=== PATIENT | male | born 1935 | race Caucasian/White ===

== ENCOUNTER 2016-06-04 21:00 | Inpatient (IN) | payer OTHER ==
--- NOTE | ~2016-06-04 | DS ---
Discharge Summary [address] [place]. [address] NAME: MAIDA YEAGER : 34 STATUS : DIS IN PAT#: [id number] AGE: 81 ADM/REG DATE : 06/05/16 MR#: [id number] REPORT SERV DATE: 06/23/16 DICTATED BY: ABIGAIL LONGORIA JR. DATE: 06/23/16 REPORT STATUS : Draft TRANSCRIBED BY: MODRafat DATE: 06/23/16 Data Collection from hospitalization DISCHARGE DIAGNOSES: 1. T3 node positive. 2. Hypertension. 3. Osteoarthritis. 4. Anemia. 5. 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 6. Gastroesophageal reflux disease. 7. Chronic obstructive pulmonary disease. 8. Asthma. CONSULTATIONS: 1. Alphonso Dos Santos MD. 2. Mode Oliva M.D. PROCEDURES PERFORMED: 1. EGD with multiple biopsies of distal gastric mass on 06/06/2016. 2. Distal gastrectomy with Radu-en-Y gastrojejunostomy, retroperitoneal lymph node dissection (right gastric hepatoduodenal ligament), periduodenal lymph nodes, cholecystectomy and feeding jejunostomy placement on 06/09/2016. 3. CT scan of the abdomen and pelvis with contrast on 06/04/2016. PATHOLOGY: Antral mass biopsy - invasive adenocarcinoma, moderately differentiated, HER- 2/sarah. IHC - negative for over expression (score 0). Immunohistochemistry for H. pylori negative. Distal stomach, distal gastrectomy - invasive gastric adenocarcinoma - intestinal type. Tumor site - antrum site - maximal tumor dimension - 8.7 cm. Histologic grade - moderately differentiated. Local extent T3 - tumor invades through the muscularis propria to focally involved the subserosal connective tissue. Status of margins - negative. Distal margin is grossly 2 cm away. Proximal margin is grossly 2.5 cm away. Lymph nodes - 7/20 perigastric nodes involved (7/20). Treatment effect - no prior treatment. Lymphs - vascular invasion - not identified. Other findings - chronic active gastritis in association with the ulcerated tumor. Pathologic stage IIIB (pT3, Pn3a). Soft tissues, subpyloric excision - no tumor seen. Soft tissue, hepatoduodenal ligament excision - no tumor seen. Lymph nodes, right gastric dissection - 0/4 nodes involved by tumor (0/4). Gallbladder cholecystectomy - chronic cholecystitis with cholesterolosis. Small bowel "additional" excision - no significant histopathologic change. MEDICATIONS: Aspirin 81 mg at bedtime, Neurontin 300 mg twice a day, Reglan 5 mg four times a day, multivitamins one tablet daily, Zofran 4 mg every four to six hours as needed, Protonix 40 mg daily, and Carafate 1 g daily. CONDITION AT DISCHARGE: Stable. DISPOSITION: The patient was discharged home to be followed by home health care on a soft GI diet with activities as instructed. He would follow up with me on 06/21/2016. Discharge Summary [address] [facility] [place]. [address] NAME: MAIDA YEAGER : 34 STATUS : DIS IN PAT#: [id number] AGE: 81 ADM/REG DATE : 06/05/16 MR#: [id number] REPORT SERV DATE: 06/23/16 DICTATED BY: ABIGAIL LONGORIA JR. DATE: 06/23/16 REPORT STATUS : Draft TRANSCRIBED BY: TABATHA DATE: 06/23/16 HOSPITAL COURSE: This is an 81-year-old man who has a history of hypertension and presented with nausea and fatigue. He reports that he had mild episodes of nausea since the week prior to this admission, but that had started becoming more consistent and bothering him since Monday prior to admission. He also experienced progressive fatigue. He had some acid reflux, which he has never had before. He presented to the emergency room and was found to be afebrile. He was hemodynamically stable. He was seen by Dr. Alphonso Dos Santos. Initial lab evaluation was benign for electrolytes, liver function tests, and lipase. White count was 17.2 and hemoglobin was 9.6. A CT scan of the abdomen and pelvis with contrast showed [id number] gastric distention with partial gastric outlet obstruction. He was admitted to the hospital at this time for further evaluation and treatment. Upon admission, urinalysis was negative. Strep test was negative. He was going to be placed on telemetry monitoring. He was held n.p.o. IV fluid resuscitation was started. Iron studies were going to be checked along with reticulocyte, TSH, B12, and folate. Procalcitonin level was going to be checked. Hemoglobin A1c was going to be checked as he was hyperglycemic. He was placed on sliding scale insulin. Standard DVT prophylaxis was begun. He was seen in consultation by Dr. Mode Oliva regarding suspecting gastric outlet obstruction. He recommended large bore NG tube for gastric decompression as well as Protonix infusion. H. pylori antibody was going to be checked. It was felt that he would need to undergo an EGD. On 06/06/2016, he was taken to the endoscopic suite where he underwent EGD with multiple biopsies of distal gastric mass. The patient tolerated this well, and there were no complications. Postoperatively, he was seen by Dr. Abigail Longoria. He discussed this in detail with Dr. Mode Oliva. It was felt that the patient would need some sort of palliative operative procedure even if he was not unresectable. It was felt that the next step would be surgery pending the pathology to make sure this is a lymphoma or another type of lesion that may be more responsive to systemic therapy. The patient was transfused two units of packed red blood cells as his hemoglobin level was 7. He remained on NG suction. The patient had been found to have a large distal neoplastic lesion in the stomach, most consistent with adenocarcinoma rather than lymphoma or other etiology. He had partial pyloric obstruction due to this. 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 IV fluids and NG suction continued. Zofran was being given as needed. Sliding scale insulin continued. On 06/07/2016, the NG tube was clamped. His abdomen was soft and nontender. He had positive bowel sounds. H. pylori AB was positive. TPN therapy was going to be performed. A PICC line was inserted. The next day, he had no new complaints. Hemoglobin level remained stable. He was up sitting in a chair. He was in good spirits. Plans were being made to proceed with surgical intervention. Biopsies had revealed adenocarcinoma. On 06/09/2016, the patient was taken to the operating room where he underwent the above- mentioned procedure by Dr. Abigail Longoria. He tolerated this well, and there were no complications. On postop day #1, urine output was clear. His lungs looked okay. The Fountain catheter remained in place. Sliding scale insulin was increased to level 2. On postop day #2, the NG tube and Fountain catheter were removed. Urine output was okay. TPN therapy continued. Tube feedings were going to be slowly started. Clear liquids were started. He was transferred to the floor. On 06/13/2016, his abdomen was soft. We advanced his diet. He was afebrile. TPN was being weaned. He was evaluated by Physical Therapy. The next day, discharge planning was performed. He complained of some heartburn and reflux. Discharge Summary [address] [address] NAME: MAIDA YEAGER : 34 STATUS : DIS IN PAT#: [id number] AGE: 81 ADM/REG DATE : 06/05/16 MR#: [id number] REPORT SERV DATE: 06/23/16 DICTATED BY: ABIGAIL LONGORIA JR. DATE: 06/23/16 REPORT STATUS : Draft TRANSCRIBED BY: MODL DATE: 06/23/16 Pathology results were reviewed. He had T3 node positive. On 06/15/2016, tube feedings were stopped. Discharge instructions were given. Due to his improved and stable condition, he was discharged home to be followed by home health care with the above-stated instructions. Information collected by: Cristy Hernandez I submit the above information as my discharge summary. BAUTISTA/TABATHA Abigail Longoria Jr., M.D. / [id number] CC: Michelle Joe Jr., TYE Alan Shikoh, M.D.
--- NOTE | ~2016-06-04 | CN ---
Consultation Report [id number] [facility] [place]. [address] NAME: MAIDA YEAGER : 34 STATUS : ADM IN [facility]#: [id number] AGE: 81 ADM/REG DATE : 06/05/16 MR#: [id number] REPORT SERV DATE: 06/06/16 DICTATED BY: ABIGAIL LONGORIA JR. DATE: 06/06/16 REPORT STATUS : Draft TRANSCRIBED BY: MODL DATE: 06/06/16 CONSULT DATE OF CONSULTATION: 06/06/2016 This is a consultation request Dr. Oliva for gastric outlet obstruction. HISTORY OF PRESENT ILLNESS: This is an 81-year-old male who presented to the emergency department with complaints of nausea, fatigue, and emesis. These symptom have been going on for approximately 1 week. He had apparently had some mild episodes of abdominal discomfort and nausea but this became much worse 5 to 6 days prior to admission. It was associated with fatigue, increased acid reflux, distention in the abdomen, and again the vomiting. He came to the emergency room where he did have a CT the abdomen and pelvis which showed moderate to severe gastric distention consistent with the gastric outlet obstruction. There is no definite mass identified. The patient denies fever or chills. He says his bowels have worked satisfactorily. He denies any GI bleeding. He denies any history of ulcer disease or any other significant GI history. He is admitted. NG tube was placed. IV fluids were administered and he is seeing Dr. Oliva of [facility] who is planning an EGD later today. PAST MEDICAL HISTORY: Remarkable for history of hypertension, osteoarthritis. SURGICAL HISTORY: Remarkable for orthopedic surgery of the hand and the spine. MEDICATIONS: Are listed and reviewed. FAMILY HISTORY: Remarkable for coronary artery disease and rheumatoid arthritis. SOCIAL HISTORY: He does not smoke or drink. He is . Lives with his . REVIEW OF SYSTEMS: GENERAL: He has no fever or chills. No significant weight loss. Fatigue is present. HEENT: Negative. PULMONARY: Negative. CARDIAC: Negative. GI: As above. : No symptoms. MUSCULOSKELETAL: Negative. HEMATOLOGIC: Negative. IMMUNOLOGIC: Negative. PSYCHIATRIC: Negative. PHYSICAL EXAMINATION: GENERAL: Exam shows an elderly male, who is in no acute distress. VITAL SIGNS: Reviewed. Consultation Report [id number] [facility] [place]. [address] NAME: MAIDA YEAGER : 34 STATUS : ADM IN PAT#: [id number] AGE: 81 ADM/REG DATE : 06/05/16 MR#: [id number] REPORT SERV DATE: 06/06/16 DICTATED BY: ABIGAIL LONGORIA JR. DATE: 06/06/16 REPORT STATUS : Draft TRANSCRIBED BY: TABATHA DATE: 06/06/16 HEENT: The head and neck exam shows the pupils equal, round, and reactive. He has no icteric changes. Mucous membranes are not dry. There is an NG-tube in place. NECK: Supple. There is no mass or thyromegaly. LUNGS: Clear bilaterally. CARDIOVASCULAR: Normal S1 and S2 without murmur. ABDOMEN: Soft, nontender. There is no mass or hepatosplenomegaly. EXTREMITIES: Show no clubbing, cyanosis, or edema. NEUROLOGIC: alert and oriented. He has no focal findings. Appropriate affect. DATA: CT scans are reviewed. Discussed with of Radiology. IMPRESSION: Gastric outlet obstruction of uncertain etiology. Recommend continued NG suction and IV fluids. We will await EGD findings to decide if surgical management is indicated. This was discussed with the patient and family who understand and agree. LACY/TABATHA Abigail Longoria Jr., M.D. / [id number] CC: MD YG Hardwick
--- NOTE | ~2016-06-04 | HP ---
History And Physical [address] [place] [place]. [address] NAME: MAIDA YEAGER : 34 STATUS : ADM IN [facility]#: [id number] AGE: 81 ADM/REG DATE : 06/05/16 MR#: [id number] REPORT SERV DATE: 06/06/16 DICTATED BY: ALPHONSO DOS SANTOS DATE: 06/05/16 REPORT STATUS : Draft TRANSCRIBED BY: MODL DATE: 06/05/16 DATE OF ADMISSION: 06/05/2016 CHIEF COMPLAINT: Nausea and fatigue. HISTORY OF PRESENT ILLNESS: This is an 82-year-old gentleman with history of hypertension, presenting with nausea and fatigue. The patient reports that he had mild episodes of nausea since last week, but it really started becoming more consistent and bothering him since about Monday. The patient also experienced progressive fatigue. The patient also had some acid reflux, which he has never had before. The patient has now decided to come to the ER for further evaluation and care. In the ER, the patient was found to be afebrile and hemodynamically stable. Initial lab evaluation was benign for electrolytes, LFTs, and lipase. The patient's CBC revealed a white blood cell count of 17.2 and hemoglobin of 9.6. CT of the abdomen and pelvis with oral contrast showed a moderate to severe gastric distention with partial gastric outlet obstruction. Internal Medicine consultation was requested for admission of the patient for further evaluation and care. REVIEW OF SYSTEMS: The patient denies any fevers or chills. Also, 14-point review of systems reviewed and negative other than mentioned above. MEDICATIONS: List is still pending at this time. PAST MEDICAL HISTORY: 1. Hypertension. 2. Osteoarthritis. PAST SURGICAL HISTORY: 1. Orthopedic Hand surgery, right hand. 2. L-spine surgery. FAMILY HISTORY: 1. Coronary artery disease. 2. Rheumatoid arthritis. 3. CVA. SOCIAL HISTORY: The patient does not smoke, drink alcohol, or use any illicit drugs. The patient lives at home with his . The patient's 2 daughters are here at bedside in the ER, along with the . PHYSICAL EXAMINATION: VITAL SIGNS: Temperature 98.6, blood pressure 114/57, pulse 105, respiratory rate is 18, saturating 94% on room air. CONSTITUTIONAL: On physical exam, the patient is alert and oriented x3 with no focal History And Physical [address] [place]. [address] NAME: MAIDA YEAGER : 34 STATUS : ADM IN [facility]#: [id number] AGE: 81 ADM/REG DATE : 06/05/16 MR#: [id number] REPORT SERV DATE: 06/06/16 DICTATED BY: ALPHONSO DOS SANTOS DATE: 06/05/16 REPORT STATUS : Draft TRANSCRIBED BY: MODL DATE: 06/05/16 neurologic deficits. GENERAL: The patient is awake, does not appear to be in acute distress, and he is cooperative. NECK: No JVD. No lymphadenopathy. Normal thyroid. CHEST: No midline sternotomy scar and no tenderness to palpation. LUNGS: Clear to auscultation bilaterally with normal respiratory effort on room air. CARDIOVASCULAR: Regular rate and rhythm with no murmurs, rubs, or gallops, and PMI is nondisplaced. ABDOMEN: Soft, nontender, with active bowel sounds and no organomegaly. EXTREMITIES: No edema. Normal distal pulses. No calf tenderness. SKIN: Clean, dry, warm, and intact. LABORATORY DATA: Sodium is 144, potassium 3.8, chloride 108, BUN 15, creatinine 1.09, glucose 184, and calcium 9.9. LFTs and lipase are within normal limits. White blood cell count is 17.2, hemoglobin 9.6, platelets 290. Strep was negative. Chest x-ray was within normal limits. Urinalysis was negative. CT of the abdomen and pelvis with p.o. contrast revealed a moderate to severe gastric distention with gastric outlet obstruction. ASSESSMENT: This is an 82-year-old gentleman with history of hypertension and osteoarthritis presenting with nausea and gastric outlet obstruction. 1. Persistent nausea due to gastric outlet obstruction. 2. Leukocytosis without any foci of infection. 3. Anemia. 4. Hyperglycemia without history of diabetes. 5. Hypertension. 6. Osteoarthritis. PLAN: The plan is to admit the patient under telemetry monitoring. The patient will be made n.p.o. and he will be given IV fluid resuscitation. The patient will also be given supportive care with antiemetics. Most importantly, I will get GI consultation requested. For the anemia, I will check iron studies along with reticulocyte and TSH, B12, folate. For the leukocytosis, I will follow CBC and check procalcitonin level. For hyperglycemia, I will check hemoglobin A1c and put him on insulin sliding scale. Otherwise, for the rest of stable past medical conditions, including hypertension, osteoarthritis et al, I will continue home medications. Standard DVT prophylaxis. The patient is full code at this time. CAMERON/TABATHA Alphonso Dos Santos MD / [id number] CC: History And Physical [address] [address] NAME: MAIDA YEAGER : 34 STATUS : ADM IN [facility]#: [id number] AGE: 81 ADM/REG DATE : 06/05/16 MR#: [id number] REPORT SERV DATE: 06/06/16 DICTATED BY: ALPHONSO DOS SANTOS DATE: 06/05/16 REPORT STATUS : Draft TRANSCRIBED BY: TABATHA DATE: 06/05/16 MD Kishoer Hardwick MD
--- NOTE | ~2016-06-04 | OP ---
Record Of Operation [facility] [address] [place]. [address] NAME: MAIDA YEAGER : 34 STATUS : ADM IN PAT#: [id number] AGE: 81 ADM/REG DATE : 06/05/16 MR#: [id number] REPORT SERV DATE: 06/06/16 DICTATED BY: MODE OLIVA DATE: 06/06/16 REPORT STATUS : Draft TRANSCRIBED BY: MODL DATE: 06/06/16 DATE OF PROCEDURE: PROCEDURE: EGD with multiple biopsies of distal gastric mass. INDICATION: Gastric outlet obstruction. MEDICATIONS: General endotracheal anesthesia. RETAIL TRAINING MANAGER: Mode Oliva M.D. COMPLICATIONS: None. HISTORY: See consult note for details. We decided to proceed with endoscopy after he had nasogastric suction all night. The potential risks and limitations were reviewed including bleeding, medication reaction, or perforation and he elected to proceed. FINDINGS: The endoscope was passed beside the nasogastric tube into the stomach. Due to the fact the tube coiled, we had to remove it and it was replaced after the procedure. There was a large amount of solid food debris in the body of the stomach and the proximal stomach. This obscured good views of the GE junction on retroflexion. The esophagus and GE junction, however, appeared normal on antegrade views. The most significant lesion was a circumferential mass involving pretty much the entire antrum with extensive ulceration and necrosis. Although there was stenosis of the pylorus, it was patent and I was able to traverse it with the endoscope. Numerous biopsies were taken. The bulb and descending duodenum were normal. IMPRESSION: 1. Large distal neoplastic lesion in the stomach most consistent with adenocarcinoma rather than lymphoma or other etiology and now status post biopsies. 2. Partial pyloric obstruction due to above. 3. Anemia due to chronic bleeding from above. RECOMMENDATIONS: I discussed in detail with Dr. Patterson. We both feel that he will need some sort of palliative operative procedure even if he was nonresectable, so probably the next step will be surgery pending the pathology to make sure this is a lymphoma or another type lesion that may be more responsive to systemic therapy. We will go ahead and transfuse 2 units of packed red blood cells as his hemoglobin is down 7 today. We will keep him to NG suction. /TABATHA Mode Oliva M.D. Record Of Operation [place] [address] [place]. [address] NAME: MAIDA YEAGER : 34 STATUS : ADM IN PAT#: [id number] AGE: 81 ADM/REG DATE : 06/05/16 MR#: [id number] REPORT SERV DATE: 06/06/16 DICTATED BY: MODE OLIVA DATE: 06/06/16 REPORT STATUS : Draft TRANSCRIBED BY: BEREKETL DATE: 06/06/16 / [id number] CC: MD MORALES Hardwick,Michelle Espinosa Jr., M.D.
--- NOTE | ~2016-06-04 | OP ---
Record Of Operation [facility] [address] [place]. [address] NAME: MAIDA YEAGER : 33 STATUS : ADM IN PAT#: [id number] AGE: 81 ADM/REG DATE : 06/05/16 MR#: [id number] REPORT SERV DATE: 06/09/16 DICTATED BY: ABIGAIL LONGORIA JR. DATE: 06/09/16 REPORT STATUS : Draft TRANSCRIBED BY: MODL DATE: 06/09/16 DATE OF PROCEDURE: 06/09/2016 SURGEON: Abigail Longoria M.D. FURNITURE ASSOCIATE: Flora Woo. PROCEDURE: Distal gastrectomy with Radu-en-Y gastrojejunostomy, retroperitoneal lymph node dissection (right gastric hepatoduodenal ligament), periduodenal lymph nodes, cholecystectomy, and feeding jejunostomy placement. 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 ANESTHESIA: General. INDICATIONS: This patient had presented with gastric outlet obstruction. Endoscopically, he was found to have an ulcerated mass and the biopsy showed adenocarcinoma. Imaging did not show any evidence of metastatic disease. Exploration for resection was indicated for palliation obstruction and local regional disease treatment. FINDINGS: On laparoscopic examination of the abdomen, there was no evidence of any peritoneal metastasis or ascites. There is no apparent hepatic metastasis. There was a mass in the antrum. This did involve the distal stomach; proximal stomach and duodenum were grossly free. Gross assessment was somewhat complicated by a malrotation syndrome where his jejunum did exit on the patient's right side and the right colon was located in the midline with adhesions of the right colon to the transverse colon and also adhesions of the small bowel. There was some adherence in the region of the posterior aspect of the tumor but again some of this was complicated by the extensive mesenteric tissue in the area. Nevertheless, all gross tumor was removed and there was a clean dissection of the tumor and perigastric nodes from the anterior surface of the pancreas and the periduodenal region. Nodes were also removed along the hepatojejunal ligament up to the hilum of the liver and also along the right gastric up to the celiac plexus. There is no gross adenopathy or other significant abnormality that was remaining. A Radu-en-Y gastrojejunostomy was created. The proximal limb was somewhat longer in view of the anatomy which also necessitated placing this in a retrocolic fashion. Cholecystectomy was performed because of this apparent inflammation and also a feeding J-tube was placed as an additional support. Pathology examination did show an ulcerated mass within the antrum with frozen section. Examination showed both proximal and distal margins were negative for tumor. DESCRIPTION OF PROCEDURE: With adequate general anesthesia, the patient was placed in the supine position. The abdomen was prepped and draped sterilely. A long midline incision was made. The dissection was carried down sharply through the subcutaneous tissues. The fascia and peritoneum were opened. The peritoneal cavity was entered. The omentum was taken off Record Of Operation [facility] [address] [facility] [place]. [address] NAME: MAIDA YEAGER : 33 STATUS : ADM IN [facility]#: [id number] AGE: 81 ADM/REG DATE : 06/05/16 MR#: [id number] REPORT SERV DATE: 06/09/16 DICTATED BY: ABIGAIL LONGORIA JR. DATE: 06/09/16 REPORT STATUS : Draft TRANSCRIBED BY: TABATHA DATE: 06/09/16 the transverse colon and also portions of the right colon as noted in the findings and then this was carried up to the greater curvature of the stomach where a site was selected for revision of the stomach removing the antrum. The lesser curvature was clamped and divided as well and the stomach was divided after stapling with TA 90. Then the periadrenal tissue was mobilized and the proximal duodenum was cleared and this was divided with a GUSTAVO 75. Additional bleeders controlled with electrocautery with the LigaSure device and ligatures of silk and suture ligature as needed. Excess was removed, could see the distal stomach and perigastric nodes and tissue was noted and omentum. It was submitted to pathology as noted. Additional nodes were excised and submitted with appropriate orientation. The gallbladder was then taken down in a retrograde fashion. Cystic duct and artery were doubly clipped and divided. Bleeding within the bed was controlled with electrocautery. There was no evidence of any bleeding or bile leak at the conclusion of the case. Then the adhesions were taken down to mobilize the small bowel and identify the anatomy. A site was selected for revision of the jejunum and this was accomplished. The distal end was brought up for the anastomosis. The lesser curved side of the stomach was closed off with 2-0 silk sutures and then an end-to-side gastrojejunostomy was created with an inner running 3-0 Vicryl and outer interrupted 3-0 silk sutures. The nasogastric tube was left through the anastomosis into the jejunal limb. Then some 45 cm distal to this, anterior interosseous was created with a GUSTAVO 75 and the open end was closed with interrupted suture of 3-0 silk. Then, the staple portion was also reinforced. Distal to this, a feeding J-tube was placed utilizing 16- Tunisian T-Tube placed securing it with a pursestring suture of silk. It was brought through the right abdominal wall where the tube was secured at the exit site with 2-0 nylon suture and the jejunum was sewed to overlying perineum with suture of 3-0 silk. The abdomen was then irrigated with saline. Hemostasis was assured also with Evicel fibrin spray. A 19 Micheal drain was left in the subhepatic space with its tip just superior to the duodenal stump and this secured with nylon suture. Then, the wound was closed by approximating the fascia with running 0 PDS suture and the subcutaneous tissues with 3-0 Vicryl and skin with dermal Monocryl. A AGUSTÍN negative pressure dressing was placed. The patient left the operating room in satisfactory condition. The estimated blood loss was 150 mL. LACY/TABATHA Abigail Longoria Jr., M.D. / [id number] CC: Mike Hunter II, MD
--- NOTE | ~2016-06-04 | CN ---
Consultation Report [facility] [address] [place]. [address] NAME: MAIDA YEAGER : 33 STATUS : ADM IN PAT#: [id number] AGE: 81 ADM/REG DATE : 06/05/16 MR#: [id number] REPORT SERV DATE: 06/05/16 DICTATED BY: MODE OLIVA DATE: 06/05/16 REPORT STATUS : Draft TRANSCRIBED BY: MODL DATE: 06/05/16 CONSULTATION DATE OF CONSULTATION: 06/05/2016 HISTORY OF PRESENT ILLNESS: This is an 81-year-old man who I am asked to evaluate for suspected gastric outlet obstruction. This gentleman has been in excellent health despite his advanced age. He is a vague historian and really reports only about a week of symptoms, which he described as mild dyspepsia and then pressure in his upper abdomen when he eats. He also had some nausea, but he has not vomited. He describes some difficulty swallowing but really appears more, but he felt a pressure sensation during the meal. He has not been eating a lot and he thinks he may have lost a few pounds. He has taken some Tums, but he denies taking any nonsteroidal medications. He has had no prior history of peptic ulcer disease. He has never had an upper endoscopy, but he did have a screening colonoscopy by Dr. Alamo over a decade ago. CT scan on admission showed gastric dilation with retained food and possible thickening of the distal stomach. PAST MEDICAL HISTORY: Remarkable only for degenerative joint disease and spinal stenosis, for which he had back surgery last year. PAST SURGICAL HISTORY: 1. Status post cataract extraction and intraocular lens implant. 2. Status post right hand surgery status post back surgery by Dr. Cadena in 11/2014. MEDICATIONS: (on admission) aspirin 81 mg a day, Neurontin, and multivitamin. ALLERGIES: NO KNOWN DRUG ALLERGIES. FAMILY HISTORY: He was one of the 11 children. His oldest brother had extensive gastric surgery for peptic ulcer disease. SOCIAL HISTORY: He is a retired software engineer developer. His grandson was a classmate my second son. His daughter has been a patient of my practice. REVIEW OF SYSTEMS: Otherwise unremarkable for constitutional, endocrine, neurologic, psychiatric, ocular, ENT, pulmonary, cardiovascular, GI, , or rheumatologic symptoms except for as noted above. PHYSICAL EXAMINATION: GENERAL: He is a healthy elderly man, lying comfortably in bed. VITAL SIGNS: Afebrile. SKIN: Warm and dry. Consultation Report [address] [place]. [address] NAME: MAIDA YEAGER : 33 STATUS : ADM IN [facility]#: [id number] AGE: 81 ADM/REG DATE : 06/05/16 MR#: [id number] REPORT SERV DATE: 06/05/16 DICTATED BY: MODE OLIVA DATE: 06/05/16 REPORT STATUS : Draft TRANSCRIBED BY: TABATHA DATE: 06/05/16 LUNGS: Clear. ABDOMEN: Soft and nontender. There is no mass or organomegaly. EXTREMITIES: No edema. LABORATORY DATA: Chest x-ray is negative. Albumin, liver enzymes, lipase are normal. CT scan shows a dilated stomach with retention and some food debris, as well as some possible thickening of the distal antrum. Procalcitonin is normal. Potassium 3.9, BUN 16, creatinine 0.90, iron 27, TIBC 369, ferritin 8. TSH normal. B12 elevated at 1713. BNP normal. White count 11.7, hemoglobin 8.1, MCV low at 77.9. IMPRESSION: 1. Gastric outlet obstruction. 2. Iron deficiency anemia. RECOMMENDATIONS: 1. Large-bore NG tube for gastric decompression. 2. PPI infusion with Protonix 8 mg an hour. 3. Check H pylori antibody. 4. Elective surgical consultation. 5. We will plan EGD tomorrow. MARIA A/TABATHA Mode Oliva M.D. / [id number] CC: MD MORALES Hardwick TYE
[2016-06-04 20:08] LABS: BASOPHILS 0.3 %; BASOPHILS ABSOLUTE 0.05 10/3/uL (0.0-0.16); EOSINOPHILS 0.5 %; EOSINOPHILS ABSOLUTE 0.09 10/3/uL (0.0-0.53); ER CBC TAT 0 Hrs 05 Mins; IMMATURE GRANULOCYTES 0.2 %; IMMATURE GRANULOCYTES ABSOLUTE 0.04 10/3/uL (0.0-0.11); LYMPHOCYTES 7.4 %; LYMPHOCYTES ABSOLUTE 1.27 10/3/uL (0.67-4.30); MEAN PLATELET VOLUME 10.2 fL (9.2-13.0); MONOCYTES ABSOLUTE 0.69 10/3/uL (0.21-1.20); NEUTROPHILS 87.6 %; NEUTROPHILS ABSOLUTE 15.06 10/3/uL (2.02-8.40); RED CELL COUNT 4.31 10/6/uL (4.7-6.1); WHITE BLOOD CELLS 17.2 10/3/uL (4.5-10.5)
[2016-06-04 20:10] LABS: HEMATOCRIT 33.1 % (40.0-51.0); HEMOGLOBIN 9.6 g/dL (13.6-17.8); MANUAL DIFF NO %; MEAN CORPUSCULAR HEMOGLOB 22.3 pg (26.0-34.0); MEAN CORPUSCULAR VOLUME 76.8 fL (80-100); PLATELET COUNT 290 10/3/uL (150-400)
[2016-06-04 20:24] LABS: A/G RATIO 0.9 (0.7-1.9); ALBUMIN 3.5 G/DL (3.5-5.0); ALKALINE PHOSPHATASE 101 U/L (45-117); BUN (BLOOD UREA NITROGEN) 15 MG/DL (6-23); CALCIUM, SERUM 9.9 MG/DL (8.5-10.4); CHLORIDE, SERUM 108 MMOL/L (96-112); CO2 (CARBON DIOXIDE) 27 MMOL/L (24-34); CREATININE 1.09 MG/DL (0.70-1.30); GFR AFRICAN AMERICAN 73 ML/MIN (>=60); GFR NON AFRICAN AMERICAN 63 ML/MIN (>=60); GLOBULIN 3.9 G/DL (2.5-4.1); GLUCOSE, SERUM 184 MG/DL (60-99); POTASSIUM, SERUM 3.8 MMOL/L (3.5-5.3); SGOT(AST) 11 U/L (5-40); SGPT(ALT) 18 U/L (5-65); SODIUM, SERUM 144 MMOL/L (135-148); TOTAL BILIRUBIN 0.5 MG/DL (0-1.2); TOTAL PROTEIN 7.4 G/DL (6.0-8.5)
[~2016-06-04 21:00] MED LIST: ASAB PO; METHOC500B PO; NEUR300 PO; OXYCOD PO
[2016-06-04 22:22] LABS: WBC (NOT ORDERED) (RFLEX) 0 (0-5)
[2016-06-04 22:32] LABS: ASCORBIC ACID (UR NOT ORDER) NEG (NEG); BILIRUBIN, URINE NEGATIVE (NEG); ER URINALYSIS TAT 0 Hrs 14 Mins; KETONE, URINE NEGATIVE (NEG); LEUKOCYTE ESTERASE(NOT OR NEG (NEG); NITRITE (URINE) NEG (NEG)
[2016-06-05] MEDS ORDERED: NEUR300 PO (00:58)
[2016-06-05] MEDS ORDERED: ASAB PO (00:58)
[2016-06-05] MEDS ORDERED: MULTIPLE VIT PO (00:59)
[2016-06-05 01:43] LABS: PROCALCITONIN <0.05 ng/mL (<0.5)
[2016-06-05 06:24] LABS: BASOPHILS 0.4 %; BASOPHILS ABSOLUTE 0.05 10/3/uL (0.0-0.16); EOSINOPHILS 2.9 %; EOSINOPHILS ABSOLUTE 0.34 10/3/uL (0.0-0.53); HEMATOCRIT 27.2 % (40.0-51.0); HEMOGLOBIN 8.1 g/dL (13.6-17.8); IMMATURE GRANULOCYTES 0.2 %; IMMATURE GRANULOCYTES ABSOLUTE 0.02 10/3/uL (0.0-0.11); LYMPHOCYTES 12.3 %; LYMPHOCYTES ABSOLUTE 1.43 10/3/uL (0.67-4.30); MANUAL DIFF NO %; MEAN CORPUS HGB CONC 29.8 g/dL (32.0-36.0); MEAN CORPUSCULAR HEMOGLOB 23.2 pg (26.0-34.0); MEAN CORPUSCULAR VOLUME 77.9 fL (80-100); MEAN PLATELET VOLUME 9.8 fL (9.2-13.0); MONOCYTES 7.9 %; MONOCYTES ABSOLUTE 0.92 10/3/uL (0.21-1.20); NEUTROPHILS 76.3 %; PLATELET COUNT 200 10/3/uL (150-400); RBC DISTRIBUTION WIDTH 19.2 % (12.0-16.0); RED CELL COUNT 3.49 10/6/uL (4.7-6.1); RETICULOCYTE COUNT 1.5 % (0.5-2.5); WHITE BLOOD CELLS 11.7 10/3/uL (4.5-10.5)
[2016-06-05 06:28] LABS: INTERNATIONAL NORMAL RATI 1.3 UNITS (-); PARTIAL THROMBO TIME 29.8 SEC (22.5-37.2); PROTIME (NOT ORD) 15.6 SEC (12.0-14.5)
[2016-06-05 06:41] LABS: B NATRIURETIC PEPTIDE (BNP) 21.4 PG/ML (< 100.0)
[2016-06-05 07:00] LABS: PROCALCITONIN 0.06 ng/mL (<0.5)
[2016-06-05 07:13] LABS: BUN (BLOOD UREA NITROGEN) 16 MG/DL (6-23); CHLORIDE, SERUM 109 MMOL/L (96-112); CO2 (CARBON DIOXIDE) 29 MMOL/L (24-34); FERRITIN 8 NG/ML (26-388); GFR AFRICAN AMERICAN 92 ML/MIN (>=60); GFR NON AFRICAN AMERICAN 79 ML/MIN (>=60); IRON BINDING CAPACITY 369 MCG/DL (250-450); IRON, SERUM 27 MCG/DL (35-150); POTASSIUM, SERUM 3.9 MMOL/L (3.5-5.3); SODIUM, SERUM 145 MMOL/L (135-148)
[2016-06-05 07:15] LABS: CALCIUM, SERUM 8.8 MG/DL (8.5-10.4); FOLATE 30.9 NG/ML (>5.2); GLUCOSE, SERUM 119 MG/DL (60-99)
[2016-06-05 11:01] LABS: GLYCOHEMOGLOBIN (HbA1c) 5.7 % (4.7-6.1)
[2016-06-06 06:35] LABS: BASOPHILS ABSOLUTE 0.07 10/3/uL (0.0-0.16); EOSINOPHILS 7.4 %; EOSINOPHILS ABSOLUTE 0.51 10/3/uL (0.0-0.53); HEMATOCRIT 24.9 % (40.0-51.0); HEMOGLOBIN 7.2 g/dL (13.6-17.8); IMMATURE GRANULOCYTES 0.1 %; IMMATURE GRANULOCYTES ABSOLUTE 0.01 10/3/uL (0.0-0.11); LYMPHOCYTES 19.5 %; LYMPHOCYTES ABSOLUTE 1.35 10/3/uL (0.67-4.30); MEAN CORPUS HGB CONC 28.9 g/dL (32.0-36.0); MEAN CORPUSCULAR HEMOGLOB 22.8 pg (26.0-34.0); MEAN CORPUSCULAR VOLUME 78.8 fL (80-100); MEAN PLATELET VOLUME 10.2 fL (9.2-13.0); MONOCYTES 8.4 %; MONOCYTES ABSOLUTE 0.58 10/3/uL (0.21-1.20); NEUTROPHILS 63.6 %; NEUTROPHILS ABSOLUTE 4.41 10/3/uL (2.02-8.40); PLATELET COUNT 178 10/3/uL (150-400); RBC DISTRIBUTION WIDTH 19.2 % (12.0-16.0); RED CELL COUNT 3.16 10/6/uL (4.7-6.1)
[2016-06-06 06:36] LABS: MANUAL DIFF NO %; WHITE BLOOD CELLS 6.9 10/3/uL (4.5-10.5)
[2016-06-06 06:38] LABS: INTERNATIONAL NORMAL RATI 1.2 UNITS (-); PROTIME (NOT ORD) 15.4 SEC (12.0-14.5)
[2016-06-07 10:42] LABS: BASOPHILS 0.9 %; BASOPHILS ABSOLUTE 0.06 10/3/uL (0.0-0.16); EOSINOPHILS 5.8 %; EOSINOPHILS ABSOLUTE 0.38 10/3/uL (0.0-0.53); IMMATURE GRANULOCYTES 0.2 %; IMMATURE GRANULOCYTES ABSOLUTE 0.01 10/3/uL (0.0-0.11); LYMPHOCYTES 15.2 %; MEAN CORPUSCULAR HEMOGLOB 24.3 pg (26.0-34.0); MEAN CORPUSCULAR VOLUME 77.2 fL (80-100); MEAN PLATELET VOLUME 9.7 fL (9.2-13.0); MONOCYTES 7.9 %; MONOCYTES ABSOLUTE 0.52 10/3/uL (0.21-1.20); PLATELET COUNT 176 10/3/uL (150-400); RBC DISTRIBUTION WIDTH 18.2 % (12.0-16.0); WHITE BLOOD CELLS 6.6 10/3/uL (4.5-10.5)
[2016-06-07 10:44] LABS: HEMATOCRIT 32.1 % (40.0-51.0); HEMOGLOBIN 10.1 g/dL (13.6-17.8); MANUAL DIFF NO %; MEAN CORPUS HGB CONC 31.5 g/dL (32.0-36.0); RED CELL COUNT 4.16 10/6/uL (4.7-6.1)
[2016-06-07 10:58] LABS: A/G RATIO 0.9 (0.7-1.9); ALBUMIN 2.9 G/DL (3.5-5.0); BUN (BLOOD UREA NITROGEN) 14 MG/DL (6-23); CALCIUM, SERUM 8.2 MG/DL (8.5-10.4); CHLORIDE, SERUM 109 MMOL/L (96-112); CREATININE 0.77 MG/DL (0.70-1.30); GFR AFRICAN AMERICAN 98 ML/MIN (>=60); GFR NON AFRICAN AMERICAN 85 ML/MIN (>=60); GLOBULIN 3.3 G/DL (2.5-4.1); PHOSPHORUS, SERUM 2.2 MG/DL (2.5-4.5); POTASSIUM, SERUM 3.7 MMOL/L (3.5-5.3); PREALBUMIN 13.2 MG/DL (17.0-43.0); SGOT(AST) 16 U/L (5-40); SGPT(ALT) 15 U/L (5-65); SODIUM, SERUM 144 MMOL/L (135-148); TOTAL PROTEIN 6.2 G/DL (6.0-8.5); TRIGLYCERIDE 77 MG/DL (< 150)
[2016-06-07 10:59] LABS: ALKALINE PHOSPHATASE 86 U/L (45-117); CO2 (CARBON DIOXIDE) 24 MMOL/L (24-34); GLUCOSE, SERUM 85 MG/DL (60-99); TOTAL BILIRUBIN 1.2 MG/DL (0-1.2)
[2016-06-07 17:22] LABS: PREALBUMIN 12.3 MG/DL (17.0-43.0)
[2016-06-07 17:23] LABS: PHOSPHORUS, SERUM 3.7 MG/DL (2.5-4.5)
[2016-06-08 06:45] LABS: BASOPHILS 0.6 %; BASOPHILS ABSOLUTE 0.04 10/3/uL (0.0-0.16); EOSINOPHILS ABSOLUTE 0.37 10/3/uL (0.0-0.53); HEMATOCRIT 32.2 % (40.0-51.0); HEMOGLOBIN 10.2 g/dL (13.6-17.8); LYMPHOCYTES 20.5 %; LYMPHOCYTES ABSOLUTE 1.27 10/3/uL (0.67-4.30); MEAN CORPUS HGB CONC 31.7 g/dL (32.0-36.0); MEAN CORPUSCULAR HEMOGLOB 24.8 pg (26.0-34.0); MEAN CORPUSCULAR VOLUME 78.3 fL (80-100); MEAN PLATELET VOLUME 10.7 fL (9.2-13.0); MONOCYTES 8.5 %; MONOCYTES ABSOLUTE 0.53 10/3/uL (0.21-1.20); NEUTROPHILS 64.4 %; NEUTROPHILS ABSOLUTE 3.99 10/3/uL (2.02-8.40); PLATELET COUNT 191 10/3/uL (150-400); RBC DISTRIBUTION WIDTH 18.3 % (12.0-16.0); RED CELL COUNT 4.11 10/6/uL (4.7-6.1); WHITE BLOOD CELLS 6.2 10/3/uL (4.5-10.5)
[2016-06-08 06:46] LABS: MANUAL DIFF NO %
[2016-06-08 07:05] LABS: A/G RATIO 0.9 (0.7-1.9); ALBUMIN 2.9 G/DL (3.5-5.0); ALKALINE PHOSPHATASE 82 U/L (45-117); BUN (BLOOD UREA NITROGEN) 16 MG/DL (6-23); CHLORIDE, SERUM 106 MMOL/L (96-112); CO2 (CARBON DIOXIDE) 22 MMOL/L (24-34); CREATININE 0.68 MG/DL (0.70-1.30); FERRITIN 25 NG/ML (26-388); GFR AFRICAN AMERICAN 103 ML/MIN (>=60); GFR NON AFRICAN AMERICAN 89 ML/MIN (>=60); GLOBULIN 3.1 G/DL (2.5-4.1); GLUCOSE, SERUM 90 MG/DL (60-99); IRON BINDING CAPACITY 337 MCG/DL (250-450); IRON, SERUM 30 MCG/DL (35-150); POTASSIUM, SERUM 3.7 MMOL/L (3.5-5.3); SGOT(AST) 17 U/L (5-40); SGPT(ALT) 20 U/L (5-65); SODIUM, SERUM 141 MMOL/L (135-148); TOTAL BILIRUBIN 0.9 MG/DL (0-1.2)
[2016-06-08 07:06] LABS: PHOSPHORUS, SERUM 2.5 MG/DL (2.5-4.5)
[2016-06-09 07:48] LABS: BASOPHILS 0.6 %; BASOPHILS ABSOLUTE 0.04 10/3/uL (0.0-0.16); EOSINOPHILS 4.8 %; EOSINOPHILS ABSOLUTE 0.34 10/3/uL (0.0-0.53); HEMATOCRIT 34.9 % (40.0-51.0); HEMOGLOBIN 10.6 g/dL (13.6-17.8); IMMATURE GRANULOCYTES 0.1 %; IMMATURE GRANULOCYTES ABSOLUTE 0.01 10/3/uL (0.0-0.11); LYMPHOCYTES 16.8 %; MEAN CORPUS HGB CONC 30.4 g/dL (32.0-36.0); MEAN CORPUSCULAR HEMOGLOB 23.7 pg (26.0-34.0); MEAN CORPUSCULAR VOLUME 77.9 fL (80-100); MONOCYTES 8.1 %; MONOCYTES ABSOLUTE 0.58 10/3/uL (0.21-1.20); NEUTROPHILS 69.6 %; NEUTROPHILS ABSOLUTE 4.96 10/3/uL (2.02-8.40); PLATELET COUNT 228 10/3/uL (150-400); RED CELL COUNT 4.48 10/6/uL (4.7-6.1); WHITE BLOOD CELLS 7.1 10/3/uL (4.5-10.5)
[2016-06-09 07:49] LABS: MANUAL DIFF NO %
[2016-06-09 07:53] LABS: A/G RATIO 0.9 (0.7-1.9); ALKALINE PHOSPHATASE 90 U/L (45-117); CALCIUM, SERUM 8.1 MG/DL (8.5-10.4); CHLORIDE, SERUM 108 MMOL/L (96-112); CO2 (CARBON DIOXIDE) 22 MMOL/L (24-34); CREATININE 0.74 MG/DL (0.70-1.30); GFR AFRICAN AMERICAN 100 ML/MIN (>=60); GFR NON AFRICAN AMERICAN 86 ML/MIN (>=60); GLOBULIN 3.4 G/DL (2.5-4.1); PHOSPHORUS, SERUM 2.6 MG/DL (2.5-4.5); POTASSIUM, SERUM 3.9 MMOL/L (3.5-5.3); SGOT(AST) 19 U/L (5-40); SGPT(ALT) 20 U/L (5-65); SODIUM, SERUM 141 MMOL/L (135-148); TOTAL BILIRUBIN 0.7 MG/DL (0-1.2); TOTAL PROTEIN 6.4 G/DL (6.0-8.5)
[2016-06-09 07:54] LABS: BUN (BLOOD UREA NITROGEN) 21 MG/DL (6-23); GLUCOSE, SERUM 124 MG/DL (60-99)
[2016-06-09 20:34] LABS: BASOPHILS 0.1 %; BASOPHILS ABSOLUTE 0.01 10/3/uL (0.0-0.16); EOSINOPHILS 0.2 %; EOSINOPHILS ABSOLUTE 0.02 10/3/uL (0.0-0.53); HEMATOCRIT 33.9 % (40.0-51.0); HEMOGLOBIN 10.4 g/dL (13.6-17.8); IMMATURE GRANULOCYTES 0.2 %; IMMATURE GRANULOCYTES ABSOLUTE 0.02 10/3/uL (0.0-0.11); LYMPHOCYTES 3.9 %; LYMPHOCYTES ABSOLUTE 0.43 10/3/uL (0.67-4.30); MEAN CORPUS HGB CONC 30.7 g/dL (32.0-36.0); MEAN CORPUSCULAR VOLUME 78.1 fL (80-100); MEAN PLATELET VOLUME 10.5 fL (9.2-13.0); MONOCYTES 5.1 %; MONOCYTES ABSOLUTE 0.56 10/3/uL (0.21-1.20); NEUTROPHILS 90.5 %; NEUTROPHILS ABSOLUTE 9.87 10/3/uL (2.02-8.40); PLATELET COUNT 240 10/3/uL (150-400); RBC DISTRIBUTION WIDTH 19.3 % (12.0-16.0); RED CELL COUNT 4.34 10/6/uL (4.7-6.1)
[2016-06-09 20:35] LABS: MANUAL DIFF NO %; WHITE BLOOD CELLS 10.9 10/3/uL (4.5-10.5)
[2016-06-09 20:51] LABS: A/G RATIO 0.9 (0.7-1.9); ALBUMIN 2.7 G/DL (3.5-5.0); ALKALINE PHOSPHATASE 82 U/L (45-117); CALCIUM, SERUM 7.9 MG/DL (8.5-10.4); CHLORIDE, SERUM 110 MMOL/L (96-112); CO2 (CARBON DIOXIDE) 19 MMOL/L (24-34); CREATININE 0.83 MG/DL (0.70-1.30); GFR AFRICAN AMERICAN 95 ML/MIN (>=60); GFR NON AFRICAN AMERICAN 82 ML/MIN (>=60); GLOBULIN 3.1 G/DL (2.5-4.1); POTASSIUM, SERUM 4.3 MMOL/L (3.5-5.3); SGOT(AST) 70 U/L (5-40); SGPT(ALT) 59 U/L (5-65); SODIUM, SERUM 140 MMOL/L (135-148); TOTAL BILIRUBIN 0.8 MG/DL (0-1.2); TOTAL PROTEIN 5.8 G/DL (6.0-8.5)
[2016-06-09 20:52] LABS: BUN (BLOOD UREA NITROGEN) 27 MG/DL (6-23); GLUCOSE, SERUM 259 MG/DL (60-99)
[2016-06-10 05:34] LABS: A/G RATIO 0.8 (0.7-1.9); ALBUMIN 2.6 G/DL (3.5-5.0); ALKALINE PHOSPHATASE 78 U/L (45-117); BUN (BLOOD UREA NITROGEN) 26 MG/DL (6-23); CHLORIDE, SERUM 113 MMOL/L (96-112); CO2 (CARBON DIOXIDE) 18 MMOL/L (24-34); GFR AFRICAN AMERICAN 96 ML/MIN (>=60); GFR NON AFRICAN AMERICAN 83 ML/MIN (>=60); GLOBULIN 3.2 G/DL (2.5-4.1); POTASSIUM, SERUM 4.3 MMOL/L (3.5-5.3); SGOT(AST) 59 U/L (5-40); SGPT(ALT) 62 U/L (5-65); SODIUM, SERUM 143 MMOL/L (135-148); TOTAL BILIRUBIN 0.7 MG/DL (0-1.2); TOTAL PROTEIN 5.8 G/DL (6.0-8.5)
[2016-06-10 05:36] LABS: GLUCOSE, SERUM 202 MG/DL (60-99); PHOSPHORUS, SERUM 1.4 MG/DL (2.5-4.5)
[2016-06-10 05:51] LABS: BASOPHILS 0.1 %; BASOPHILS ABSOLUTE 0.01 10/3/uL (0.0-0.16); EOSINOPHILS 0 %; HEMATOCRIT 33.6 % (40.0-51.0); IMMATURE GRANULOCYTES 0.3 %; IMMATURE GRANULOCYTES ABSOLUTE 0.04 10/3/uL (0.0-0.11); LYMPHOCYTES 5.4 %; LYMPHOCYTES ABSOLUTE 0.81 10/3/uL (0.67-4.30); MEAN CORPUSCULAR HEMOGLOB 25.9 pg (26.0-34.0); MEAN CORPUSCULAR VOLUME 79.2 fL (80-100); MEAN PLATELET VOLUME 10.6 fL (9.2-13.0); MONOCYTES 6.3 %; MONOCYTES ABSOLUTE 0.96 10/3/uL (0.21-1.20); NEUTROPHILS 87.9 %; NEUTROPHILS ABSOLUTE 13.31 10/3/uL (2.02-8.40); PLATELET COUNT 243 10/3/uL (150-400); RBC DISTRIBUTION WIDTH 19.3 % (12.0-16.0); RED CELL COUNT 4.24 10/6/uL (4.7-6.1); WHITE BLOOD CELLS 15.1 10/3/uL (4.5-10.5)
[2016-06-10 05:53] LABS: MANUAL DIFF NO %; MEAN CORPUS HGB CONC 32.7 g/dL (32.0-36.0)
[2016-06-11 05:42] LABS: A/G RATIO 0.9 (0.7-1.9); ALBUMIN 2.5 G/DL (3.5-5.0); ALKALINE PHOSPHATASE 67 U/L (45-117); BUN (BLOOD UREA NITROGEN) 24 MG/DL (6-23); CHLORIDE, SERUM 113 MMOL/L (96-112); CREATININE 0.79 MG/DL (0.70-1.30); GFR AFRICAN AMERICAN 97 ML/MIN (>=60); GFR NON AFRICAN AMERICAN 84 ML/MIN (>=60); GLOBULIN 2.9 G/DL (2.5-4.1); GLUCOSE, SERUM 174 MG/DL (60-99); PHOSPHORUS, SERUM 1.5 MG/DL (2.5-4.5); POTASSIUM, SERUM 3.9 MMOL/L (3.5-5.3); PREALBUMIN 11.5 MG/DL (17.0-43.0); SGOT(AST) 26 U/L (5-40); SGPT(ALT) 48 U/L (5-65); SODIUM, SERUM 145 MMOL/L (135-148); TOTAL BILIRUBIN 0.6 MG/DL (0-1.2); TOTAL PROTEIN 5.4 G/DL (6.0-8.5); TRIGLYCERIDE 60 MG/DL (< 150)
[2016-06-11 05:45] LABS: CO2 (CARBON DIOXIDE) 22 MMOL/L (24-34)
[2016-06-11 06:29] LABS: BASOPHILS 0.3 %; BASOPHILS ABSOLUTE 0.04 10/3/uL (0.0-0.16); EOSINOPHILS 0.1 %; EOSINOPHILS ABSOLUTE 0.02 10/3/uL (0.0-0.53); HEMATOCRIT 31.9 % (40.0-51.0); HEMOGLOBIN 9.9 g/dL (13.6-17.8); IMMATURE GRANULOCYTES 0.1 %; IMMATURE GRANULOCYTES ABSOLUTE 0.02 10/3/uL (0.0-0.11); LYMPHOCYTES 8.5 %; LYMPHOCYTES ABSOLUTE 1.19 10/3/uL (0.67-4.30); MANUAL DIFF NO %; MEAN CORPUSCULAR HEMOGLOB 24.8 pg (26.0-34.0); MEAN CORPUSCULAR VOLUME 79.9 fL (80-100); MEAN PLATELET VOLUME 11.3 fL (9.2-13.0); MONOCYTES 6.2 %; MONOCYTES ABSOLUTE 0.87 10/3/uL (0.21-1.20); NEUTROPHILS 84.8 %; NEUTROPHILS ABSOLUTE 11.87 10/3/uL (2.02-8.40); PLATELET COUNT 205 10/3/uL (150-400); RBC DISTRIBUTION WIDTH 20.8 % (12.0-16.0); RED CELL COUNT 3.99 10/6/uL (4.7-6.1)
[2016-06-11 07:38] LABS: ANISOCYTOSIS 1+ (5-10/OIF) (0-5/OIF); HYPOCHROMIA 1+ (3-10/OIF) (0-2/OIF); MICROCYTES 1+ (5-10/OIF) (0-5/OIF); PLATELET ESTIMATE ADQ (ADEQUATE)
[2016-06-11 07:39] LABS: TEARDROP SHAPED RBCS OCC (0-2/OIF); TOXIC GRANULATION 1+
[2016-06-12 05:21] LABS: BASOPHILS 0.3 %; BASOPHILS ABSOLUTE 0.04 10/3/uL (0.0-0.16); EOSINOPHILS 1.2 %; EOSINOPHILS ABSOLUTE 0.16 10/3/uL (0.0-0.53); HEMOGLOBIN 8.1 g/dL (13.6-17.8); IMMATURE GRANULOCYTES 0.3 %; IMMATURE GRANULOCYTES ABSOLUTE 0.04 10/3/uL (0.0-0.11); LYMPHOCYTES 8.3 %; LYMPHOCYTES ABSOLUTE 1.08 10/3/uL (0.67-4.30); MEAN CORPUS HGB CONC 30.3 g/dL (32.0-36.0); MEAN CORPUSCULAR HEMOGLOB 24.3 pg (26.0-34.0); MEAN CORPUSCULAR VOLUME 79.9 fL (80-100); MEAN PLATELET VOLUME 10.5 fL (9.2-13.0); MONOCYTES 6.7 %; MONOCYTES ABSOLUTE 0.88 10/3/uL (0.21-1.20); NEUTROPHILS 83.2 %; NEUTROPHILS ABSOLUTE 10.85 10/3/uL (2.02-8.40); PLATELET COUNT 165 10/3/uL (150-400); RBC DISTRIBUTION WIDTH 21.1 % (12.0-16.0); RED CELL COUNT 3.34 10/6/uL (4.7-6.1); WHITE BLOOD CELLS 13.1 10/3/uL (4.5-10.5)
[2016-06-12 05:22] LABS: HEMATOCRIT 26.7 % (40.0-51.0); MANUAL DIFF NO %
[2016-06-12 05:31] LABS: A/G RATIO 0.7 (0.7-1.9); ALBUMIN 2.2 G/DL (3.5-5.0); ALKALINE PHOSPHATASE 64 U/L (45-117); BUN (BLOOD UREA NITROGEN) 24 MG/DL (6-23); CALCIUM, SERUM 7.6 MG/DL (8.5-10.4); CHLORIDE, SERUM 112 MMOL/L (96-112); CO2 (CARBON DIOXIDE) 24 MMOL/L (24-34); CREATININE 0.67 MG/DL (0.70-1.30); GFR AFRICAN AMERICAN 104 ML/MIN (>=60); GFR NON AFRICAN AMERICAN 89 ML/MIN (>=60); GLUCOSE, SERUM 187 MG/DL (60-99); PHOSPHORUS, SERUM 1.8 MG/DL (2.5-4.5); POTASSIUM, SERUM 3.9 MMOL/L (3.5-5.3); SGOT(AST) 16 U/L (5-40); SGPT(ALT) 35 U/L (5-65); SODIUM, SERUM 145 MMOL/L (135-148); TOTAL BILIRUBIN 0.6 MG/DL (0-1.2); TOTAL PROTEIN 5.2 G/DL (6.0-8.5)
[2016-06-12 13:24] LABS: PHOSPHORUS, SERUM 2.5 MG/DL (2.5-4.5); PREALBUMIN 9.1 MG/DL (17.0-43.0)
[2016-06-13 06:41] LABS: A/G RATIO 0.7 (0.7-1.9); ALBUMIN 2.2 G/DL (3.5-5.0); ALKALINE PHOSPHATASE 84 U/L (45-117); BUN (BLOOD UREA NITROGEN) 25 MG/DL (6-23); CALCIUM, SERUM 8.1 MG/DL (8.5-10.4); CHLORIDE, SERUM 109 MMOL/L (96-112); CO2 (CARBON DIOXIDE) 22 MMOL/L (24-34); CREATININE 0.63 MG/DL (0.70-1.30); GFR AFRICAN AMERICAN 106 ML/MIN (>=60); GFR NON AFRICAN AMERICAN 92 ML/MIN (>=60); GLUCOSE, SERUM 198 MG/DL (60-99); PHOSPHORUS, SERUM 2.7 MG/DL (2.5-4.5); POTASSIUM, SERUM 3.8 MMOL/L (3.5-5.3); SGOT(AST) 14 U/L (5-40); SGPT(ALT) 31 U/L (5-65); SODIUM, SERUM 141 MMOL/L (135-148); TOTAL BILIRUBIN 0.9 MG/DL (0-1.2); TOTAL PROTEIN 5.2 G/DL (6.0-8.5)
[2016-06-13 07:09] LABS: BASOPHILS 0.3 %; BASOPHILS ABSOLUTE 0.03 10/3/uL (0.0-0.16); EOSINOPHILS 2.6 %; HEMATOCRIT 25.9 % (40.0-51.0); HEMOGLOBIN 7.9 g/dL (13.6-17.8); IMMATURE GRANULOCYTES 0.2 %; IMMATURE GRANULOCYTES ABSOLUTE 0.02 10/3/uL (0.0-0.11); LYMPHOCYTES 8.4 %; LYMPHOCYTES ABSOLUTE 0.96 10/3/uL (0.67-4.30); MEAN CORPUS HGB CONC 30.5 g/dL (32.0-36.0); MEAN CORPUSCULAR HEMOGLOB 24.1 pg (26.0-34.0); MEAN PLATELET VOLUME 11.7 fL (9.2-13.0); MONOCYTES 6.7 %; MONOCYTES ABSOLUTE 0.76 10/3/uL (0.21-1.20); NEUTROPHILS 81.8 %; NEUTROPHILS ABSOLUTE 9.35 10/3/uL (2.02-8.40); PLATELET COUNT 151 10/3/uL (150-400); RBC DISTRIBUTION WIDTH 21.7 % (12.0-16.0); RED CELL COUNT 3.28 10/6/uL (4.7-6.1); WHITE BLOOD CELLS 11.4 10/3/uL (4.5-10.5)
[2016-06-13 07:14] LABS: MANUAL DIFF NO %
[2016-06-13 07:26] LABS: PLATELET ESTIMATE ADQ (ADEQUATE)
[2016-06-13 07:27] LABS: ANISOCYTOSIS 1+ (5-10/OIF) (0-5/OIF); POIKILOCYTOSIS 1+ (5-10/OIF) (0-5/OIF); POLYCHROMASIA 1+ (2-5/OIF) (0-1/OIF)
[2016-06-14 06:54] LABS: BASOPHILS 0.3 %; BASOPHILS ABSOLUTE 0.04 10/3/uL (0.0-0.16); EOSINOPHILS 2.6 %; EOSINOPHILS ABSOLUTE 0.31 10/3/uL (0.0-0.53); HEMOGLOBIN 8.4 g/dL (13.6-17.8); IMMATURE GRANULOCYTES 0.3 %; IMMATURE GRANULOCYTES ABSOLUTE 0.04 10/3/uL (0.0-0.11); LYMPHOCYTES 9.2 %; LYMPHOCYTES ABSOLUTE 1.09 10/3/uL (0.67-4.30); MEAN CORPUS HGB CONC 31.1 g/dL (32.0-36.0); MEAN CORPUSCULAR HEMOGLOB 24.8 pg (26.0-34.0); MEAN CORPUSCULAR VOLUME 79.6 fL (80-100); MEAN PLATELET VOLUME 11.1 fL (9.2-13.0); MONOCYTES 8.7 %; MONOCYTES ABSOLUTE 1.02 10/3/uL (0.21-1.20); NEUTROPHILS 78.9 %; NEUTROPHILS ABSOLUTE 9.29 10/3/uL (2.02-8.40); RBC DISTRIBUTION WIDTH 21.8 % (12.0-16.0); RED CELL COUNT 3.39 10/6/uL (4.7-6.1); WHITE BLOOD CELLS 11.8 10/3/uL (4.5-10.5)
[2016-06-14 06:56] LABS: MANUAL DIFF NO %; PLATELET COUNT 215 10/3/uL (150-400)
[2016-06-14 07:05] LABS: BUN (BLOOD UREA NITROGEN) 23 MG/DL (6-23); CALCIUM, SERUM 8.4 MG/DL (8.5-10.4); CHLORIDE, SERUM 108 MMOL/L (96-112); CO2 (CARBON DIOXIDE) 23 MMOL/L (24-34); GFR AFRICAN AMERICAN 102 ML/MIN (>=60); GFR NON AFRICAN AMERICAN 88 ML/MIN (>=60); GLUCOSE, SERUM 117 MG/DL (60-99); POTASSIUM, SERUM 4.1 MMOL/L (3.5-5.3); SODIUM, SERUM 141 MMOL/L (135-148)
[2016-06-15 06:35] LABS: BASOPHILS 0.3 %; BASOPHILS ABSOLUTE 0.03 10/3/uL (0.0-0.16); EOSINOPHILS 1.5 %; EOSINOPHILS ABSOLUTE 0.16 10/3/uL (0.0-0.53); HEMATOCRIT 29.4 % (40.0-51.0); HEMOGLOBIN 9.1 g/dL (13.6-17.8); IMMATURE GRANULOCYTES 0.5 %; IMMATURE GRANULOCYTES ABSOLUTE 0.05 10/3/uL (0.0-0.11); LYMPHOCYTES 9.7 %; LYMPHOCYTES ABSOLUTE 1.01 10/3/uL (0.67-4.30); MANUAL DIFF NO %; MEAN CORPUSCULAR HEMOGLOB 24.6 pg (26.0-34.0); MEAN CORPUSCULAR VOLUME 79.5 fL (80-100); MEAN PLATELET VOLUME 11.4 fL (9.2-13.0); MONOCYTES 9.7 %; MONOCYTES ABSOLUTE 1.01 10/3/uL (0.21-1.20); NEUTROPHILS 78.3 %; NEUTROPHILS ABSOLUTE 8.13 10/3/uL (2.02-8.40); PLATELET COUNT 265 10/3/uL (150-400); RBC DISTRIBUTION WIDTH 21.9 % (12.0-16.0); WHITE BLOOD CELLS 10.4 10/3/uL (4.5-10.5)
[2016-06-15 06:41] LABS: BUN (BLOOD UREA NITROGEN) 25 MG/DL (6-23); CALCIUM, SERUM 8.6 MG/DL (8.5-10.4); CHLORIDE, SERUM 109 MMOL/L (96-112); CO2 (CARBON DIOXIDE) 23 MMOL/L (24-34); CREATININE 0.79 MG/DL (0.70-1.30); GFR AFRICAN AMERICAN 97 ML/MIN (>=60); GFR NON AFRICAN AMERICAN 84 ML/MIN (>=60); POTASSIUM, SERUM 4.3 MMOL/L (3.5-5.3); SODIUM, SERUM 142 MMOL/L (135-148)
[2016-06-15 06:42] LABS: GLUCOSE, SERUM 146 MG/DL (60-99)
[2016-06-15 07:06] LABS: ANISOCYTOSIS 1+ (5-10/OIF) (0-5/OIF); GIANT PLATELET OCC; PLATELET ESTIMATE ADQ (ADEQUATE)
[2016-06-15 07:07] LABS: TOXIC GRANULATION 1+
[2016-06-15 07:08] LABS: POIKILOCYTOSIS 1+ (5-10/OIF) (0-5/OIF)
[2016-06-15 07:09] LABS: OVALOCYTES 1+ (3-10/OIF) (0-2/OIF); SCHISTOCYTES OCC (0-2/OIF)
[2016-06-15] MEDS ORDERED: ZOFRAN4 PO (11:01)
[2016-06-15] MEDS ORDERED: REG5 PO (11:02)
[2016-06-15] MEDS ORDERED: PROTONIX PO (11:02)
[2016-06-15] MEDS ORDERED: SUCR PO (11:05)
== END 2016-06-15 12:15 | disposition home health service (06) | DRG 326 ==
LOC: ER 21:00 → 5SO 06-05 01:44 → SDC/OF 06-09 18:55 → MIC 06-09 20:03 → 5SO 06-12 14:26
PROVIDERS: Emergency Medicine; Internal Medicine; Internal Medicine Gastroenterology; Specialist
PROC: 3E0T3CZ (ICD-10-PCS; 2016-06-06)
PROC: 0DB68ZX Excision of Stomach, Via Natural or Artificial Opening Endoscopic, Diagnostic (ICD-10-PCS; principal; 2016-06-06 15:14)
PROC: 02HV33Z Insertion of Infusion Device into Superior Vena Cava, Percutaneous Approach (ICD-10-PCS; 2016-06-07)
PROC: 4A02X4A Measurement of Cardiac Electrical Activity, Guidance, External Approach (ICD-10-PCS; 2016-06-07)
PROC: 30233N1 Transfusion of Nonautologous Red Blood Cells into Peripheral Vein, Percutaneous Approach (ICD-10-PCS; 2016-06-07)
PROC: 0D160ZA Bypass Stomach to Jejunum, Open Approach (ICD-10-PCS; 2016-06-09)
PROC: 07BB0ZZ Excision of Mesenteric Lymphatic, Open Approach (ICD-10-PCS; 2016-06-09)
PROC: 3E0436Z Introduction of Nutritional Substance into Central Vein, Percutaneous Approach (ICD-10-PCS; 2016-06-09)
PROC: 0FT40ZZ Resection of Gallbladder, Open Approach (ICD-10-PCS; 2016-06-09)
DX: C16.8 Malignant neoplasm of overlapping sites of stomach (principal); E43 Unspecified severe protein-calorie malnutrition; C77.2 Secondary and unspecified malignant neoplasm of intra-abdominal lymph nodes; K31.1 Adult hypertrophic pyloric stenosis; D50.0 Iron deficiency anemia secondary to blood loss (chronic); K81.1 Chronic cholecystitis; I10 Essential (primary) hypertension; R73.9 Hyperglycemia, unspecified; M19.90 Unspecified osteoarthritis, unspecified site; Z79.82 Long term (current) use of aspirin; Z79.899 Other long term (current) drug therapy; K21.9 Gastro-esophageal reflux disease without esophagitis; Z98.890 Other specified postprocedural states
CPT/HCPCS: 36415; 36569; 71010; 74000; 74177; 80048; 80053; 81001; 82330; 82607; 82728; 82746; 82962; 83036; 83540; 83550; 83690; 83735; 83880; 84100; 84134; 84145; 84443; 84478; 85025; 85045; 85610; 85730; 86677; 86850; 86900; 86901; 86920; 87070; 87641; 87880; 88304; 88305; 88307; 88309; 88331; 88332; 88342; 88360; 93005; 96374; 97116-GP; 97161-GP; 99285; A9270-GY; C1751; C9113; J0330; J0690; J1170; J2250; J2370; J2405; J2550; J2710; J2765; J3010; P9016; P9045; Q9967